=== PATIENT | male | born 1935 | race Caucasian/White ===

== ENCOUNTER 2019-03-31 09:32 | Emergency (ER) | payer OTHER ==
[~2019-03-31] VITALS: Ht 170.2 cm; Wt 83.9 kg
[2019-03-31] MEDS ORDERED: TOPROL XL25 M1 PO (10:16)
[2019-03-31] MEDS ORDERED: METFORMIN HCL1000 MG PO (10:16)
[2019-03-31] MEDS ORDERED: NEURONTIN800 MG PO (10:18)
[2019-03-31] MEDS ORDERED: NEURONTIN300 MG PO (10:18)
[2019-03-31] MEDS ORDERED: MICROZIDE12.5 MG PO (10:19)
[2019-03-31] MEDS ORDERED: PRAVASTATIN SOD20 MG PO (10:19)
[2019-03-31] MEDS ORDERED: PLAVIX75 MG PO (10:20)
[2019-03-31] MEDS ORDERED: RESTORIL30 M1 PO (10:20)
[2019-03-31] MEDS ORDERED: ELIQUIS2.5 MG PO (10:47)
== END 2019-03-31 10:55 | disposition home or self-care (01) ==
LOC: ER 09:32
DX: I77.89 Other specified disorders of arteries and arterioles (principal)

== ENCOUNTER 2022-06-09 18:20 | Emergency (ER) | payer OTHER ==
[~2022-06-09] VITALS: Ht 170.2 cm; Wt 85.7 kg
[~2022-06-09 18:20] MED LIST: ELIQUIS2.5 MG PO; METFORMIN HCL1000 MG PO; MICROZIDE12.5 MG PO; NEURONTIN300 MG PO; NEURONTIN800 MG PO; PLAVIX75 MG PO; PRAVASTATIN SOD20 MG PO; RESTORIL30 M1 PO; TOPROL XL25 M1 PO
== END 2022-06-09 20:44 | disposition home or self-care (01) ==
LOC: ER 18:20
DX: S29.8XXA Other specified injuries of thorax, initial encounter (principal); V49.88XA Car occupant (driver) (passenger) injured in other specified transport accidents, initial encounter; Y93.89 Activity, other specified; Y92.413 State road as the place of occurrence of the external cause; Z88.0 Allergy status to penicillin; I10 Essential (primary) hypertension; S39.92XA Unspecified injury of lower back, initial encounter